=== PATIENT | female | born 1990 | race African-American/Black ===

== ENCOUNTER 2019-05-02 17:03 | Emergency (ER) | payer MEDICAID ==
[~2019-05-02] VITALS: Ht 160 cm; Wt 54.0 kg
[2019-05-02 17:20] VITALS: BP 142/96
--- NOTE | 2019-05-02 17:30 | NUR ---
BIB SELF. AAO X 4 C/O MOUTH PAIN X1 MONTH. PT REPORTS IT STARTED WITH TOOTH PAIN AND THEN BECAME MOUTH PAIN. SWELLING IN UPPER MOUTH STARTED 2 DAYS AGO. UNABLE TO EAT DUE TO PAIN. LAST FOOD INTAKE FRIDAY. PAIN AT 09/02. ER TO EVALUATE PT.
--- NOTE | 2019-05-02 17:36 | NUR ---
DR AUSTIN AT BEDSIDE FOR PT EVAL
[2019-05-02] MEDS ORDERED: cefTRIAXone 1,000 MG in LIDOCAINE MPF 1% - 5 mL VIAL 2.1 ML IM ONE (17:40)
[2019-05-02] MEDS ORDERED: KETOROLAC 60 MG/2 ML VIAL IM ONE (17:40)
[2019-05-02 18:22] VITALS: BP 127/78
--- NOTE | 2019-05-02 18:23 | NUR ---
Patient discharged with v/s stable. Written and verbal after care instructions given and explained. Patient alert, oriented and verbalized understanding of instructions. Ambulatory with steady gait. All questions addressed prior to discharge. ID band removed. Patient advised to follow up with PMD. Rx of MOTRIN/TRAMADOL/AMOXICILLIN given. Patient educated on indication of medication including possible reaction and side effects. Opportunity to ask questions provided and answered.
== END 2019-05-02 18:23 | disposition home or self-care (01) ==
LOC: MED 17:03
DX: K05.219 Aggressive periodontitis, localized, unspecified severity (principal); R03.0 Elevated blood-pressure reading, without diagnosis of hypertension
CPT/HCPCS: 96372; 99283; J0696; J1885; J2001